=== PATIENT | female | born 1970 | race Caucasian/White ===

== ENCOUNTER 2016-08-31 10:34 | Emergency (ER) | payer BC ==
--- NOTE | 2016-08-31 11:05 | EDM.PDOC ---
ED HPI GENERAL MEDICAL PROBLEM - General Chief Complaint: General Stated Complaint: just doesnt feel right Time Seen by Provider: 08/31/16 10:58 Source of Information: Reports: Patient History Limitations: Reports: No limitations - History of Present Illness INITIAL COMMENTS - FREE TEXT/NARRATIVE: Patient reports "not feeling right" since yesterday. She has a history of relux and takes nexium or prilosec. She reports feeling weak and having gas. No bloating. States when she feels nauseated she just belches. She was very emotional during history collection with nursing staff, not so with myself. She states that eating makes her gas worse. Tylenol has been helpful. She also describes some right sided abdominal pain. She is a 1 PPD smoker, drinks 1 -3 nights weekly and states she will have 1-2 glasses of wine. When I arrived, nursing had already performed an EKG which appears normal, blood pressure is very elevated at 180's systolic over 110's diastolic. She has no PCP. No surgical history. Denies medical history except for the stomach issues. Onset: other Onset Date: 08/30/16 Location: Reports: abdomen Severity: moderate Improves with: Reports: Medication (states tylenol was helpful) Worsens with: Reports: Eating Associated Symptoms: Reports: no other symptoms - Related Data Allergies Allergy/AdvReac Type Severity Reaction Status Date / Time aspirin Allergy Hives Verified 08/31/16 11:01 Penicillins Allergy Hives Verified 08/31/16 11:01 Home Meds: Home Meds Esomeprazole Magnesium [Nexium] 20 mg DAILY 08/31/16 [History] ED ROS GENERAL - Review of Systems Review Of Systems: See Below Constitutional: Reports: weakness HEENT: Reports: No symptoms Respiratory: Reports: No Symptoms Cardiovascular: Reports: No symptoms Endocrine: Reports: no symptoms GI/Abdominal: Reports: Decreased appetite, Other (gas and bloated) : Reports: no symptoms Musculoskeletal: Reports: no symptoms Skin: Reports: no symptoms Neurological: Reports: Weakness Psychiatric: Reports: No symptoms Hematologic/Lymphatic: Reports: no symptoms Immunologic: Reports: no symptoms ED EXAM, GENERAL - Physical Exam Exam: See Below Exam Limited By: No limitations General Appearance: alert, WD/WN, anxious Ears: normal TMs Throat/Mouth: Normal inspection, Normal oropharynx Head: atraumatic, normocephalic Neck: normal inspection Respiratory/Chest: no respiratory distress, lungs clear, normal breath sounds Cardiovascular: normal peripheral pulses GI/Abdominal: normal bowel sounds, soft, non tender, no organomegaly, no distention, no abnormal bruit Back Exam: normal inspection, full range of motion Extremities: normal inspection, normal range of motion, non-tender, no pedal edema, normal capillary refill Neurological: alert, oriented, CN II-XII intact, normal cognition, normal gait, normal reflexes, no motor/sensory deficits Psychiatric: normal affect, normal mood Skin Exam: Warm, Dry, Intact Lymphatic: no adenopathy EKG INTERPRETATION EKG Date: 08/31/16 Time: 10:44 Rhythm: NSR Rate (beats/min): 86 [place]: normal P-wave: present QRS: normal ST-T: normal QT: normal Comparison: NA - no prior EKG EKG Interpretation Comments: normal ekg Departure - Departure Time of Disposition: 12:14 Disposition: Home, Self-Care 01 Condition: good Clinical Impression: Hypertension, Chronic GERD, Anxiety about health Instructions: Hypertension, [id number], DASH Eating Plan Forms: ED Department Discharge Additional Instructions: You should follow up with a primary doctor as you do need to be sure your blood pressure is controlled. We did discuss the damage to your organs that high blood pressure can cause including damage to your kidneys, liver, as well as your heart. You need to stop smoking. Your arteries and veins are becoming more rigid due to the smoking which can increase your blood pressure as well as cause poor blood flow to your lower legs. Please contact with any questions or concerns in the meantime. - Problem List & Annotations (1) Anxiety about health SNOMED Code(s): 141791549 Code(s): F41.8 - OTHER SPECIFIED ANXIETY DISORDERS Status: Acute Priority : Medium Current Visit: Yes (2) Chronic GERD SNOMED Code(s): 246613242, 699297107 Code(s): K21.9 - GASTRO-ESOPHAGEAL REFLUX DISEASE WITHOUT ESOPHAGITIS Status: Acute Priority: Medium Current Visit: Yes (3) Hypertension SNOMED Code(s): 69948677 Code(s): I10 - ESSENTIAL (PRIMARY) HYPERTENSION Status: Acute Priority: Medium Current Visit: Yes Qualifiers: Hypertension type: essential hypertension Qualified Code(s): I10 - Essential (primary) hypertension - Problem List Review Problem List Initiated/Reviewed/Updated: Yes - Assessment/Plan Assessment:: hypertensioin GERD Anxiety regarding health Plan: You should follow up with a primary doctor as you do need to be sure your blood pressure is controlled. We did discuss the damage to your organs that high blood pressure can cause including damage to your kidneys, liver, as well as your heart. You need to stop smoking. Your arteries and veins are becoming more rigid due to the smoking which can increase your blood pressure as well as cause poor blood flow to your lower legs. Please contact with any questions or concerns in the meantime.
[2016-08-31] MEDS ORDERED: Metoprolol Tartrate 25 MG Tab PO ONE (11:06)
[2016-08-31] MEDS ORDERED: GI Cocktail Oral Solution 30 ML PO ONE (11:07)
[2016-08-31] MEDS ORDERED: Nitroglycerin 0.4 MG/HR Transdermal Patch TRDERM ONE (11:07)
[2016-08-31 11:59] LABS: CHLORIDE,CL 102 mmol/L (98-107); SODIUM,NA 139 mmol/L (136-145)
[2016-08-31 12:25] VITALS: BP 151/97
== END 2016-08-31 12:23 | disposition home or self-care (01) ==
LOC: VM.ED 10:34
DX: K21.9 Gastro-esophageal reflux disease without esophagitis (principal); I10 Essential (primary) hypertension; F41.9 Anxiety disorder, unspecified; Z88.0 Allergy status to penicillin; Z88.6 Allergy status to analgesic agent
CPT/HCPCS: 36415; 80053; 82150; 82550; 82553; 83690; 84443; 84484; 85025; 85610; 93005; 99284; A9270

== ENCOUNTER 2016-09-07 14:48 | Emergency (ER) | payer BC ==
--- NOTE | 2016-09-07 14:59 | EDM.PDOC ---
ED HPI Skin/Rash - General Chief Complaint: Skin Complaint Stated Complaint: HAND INJURY Time Seen by Provider: 09/07/16 14:54 Source: Reports: Patient, RN, RN notes reviewed History Limitations: Reports: No limitations - History of Present Illness INITIAL COMMENTS - FREE TEXT/NARRATIVE: Patient presents to the ED at [facility] with a laceration to the lateral palm of the right hand. Patient states she was washing dishes and a drinking glass broke, causing the laceration. Symptom Onset Date: 09/07/16 Timing: Reports: still present Location, Skin: Reports: upper extremity, right Quality: Reports: Throbbing - Related Data Allergies Allergy/AdvReac Type Severity Reaction Status Date / Time aspirin Allergy Hives Verified 09/07/16 15:01 NSAIDS (Non-Steroidal Allergy Other Verified 09/07/16 15:02 Anti-Inflamma Penicillins Allergy Hives Verified 09/07/16 15:01 Home Meds: Ambulatory Orders Medication Instructions Recorded Confirmed Esomeprazole Magnesium [Nexium] 20 mg DAILY 08/31/16 08/31/16 Past Medical History - Past Health History Medical/Surgical History: Denies Medical/Surgical History Gastrointestinal History: Reports: Other (see below) Other Gastrointestinal History: gas and bloated discomfort Social & Family History - Tobacco Use Smoking Status *Q: Current Every Day Smoker Years of Tobacco use: 30 Packs/Tins Daily: 1 - Alcohol Use Days Per Week of Alcohol Use: 3 Number of Drinks Per Day: 4 Total Drinks Per Week: 12 - Recreational Drug Use Recreational Drug Use: No ED ROS GENERAL - Review of Systems Review Of Systems: See Below Constitutional: Denies: fever, chills, weakness Respiratory: Denies: Shortness of Breath, Cough Cardiovascular: Denies: Chest pain, Palpitations Skin: Reports: wound (cut palm of right hand) Neurological: Reports: No Symptoms ED EXAM, SKIN/RASH Exam: See Below Exam Limited By: No limitations General Appearance: alert, anxious Respiratory/Chest: no respiratory distress, lungs clear, normal breath sounds Cardiovascular: regular rate, rhythm Peripheral Pulses: 2+: radial (L), radial (R) Neurological: alert, oriented Skin: Warm, Dry, Normal color, No rash, Wound/incision (2cm vertical laceration lateral right palm; low grade venous ooze) Location, Skin: upper extremity, right Associated features: swelling ED SKIN PROCEDURES - Laceration/Wound Repair Right Lateral Hand Lac/wound length in cm: 2 Appearance: subcutaneous, linear, clean Distal NVT: neuro & vascular intact, no tendon injury Local anesthesia - Lidocaine (Xylocaine): 1% with epi Local anesthetic volume: 5cc Skin prep: chlorhexidine (hibiciens) Exploration/Debridement/Repair: wound explored, in a bloodless field, explored to base, no foreign material found, wound margins revised Closed with: sutures Suture size: 4-0 # of sutures: 6 Suture type: nylon, interrupted, simple Sterile dressing applied: provider Tetanus status addressed: Yes Complications: No Course - Vital Signs Last Recorded V/S: Last Vital Signs Temp 36.8 C 09/07/16 15:04 Pulse 99 09/07/16 15:04 Resp 16 09/07/16 15:04 BP 133/98 H 09/07/16 15:04 Pulse Ox 95 09/07/16 15:04 - Orders/Labs/Meds Meds: Medications Discontinued Medications Generic Name Dose Route Start Last Admin Trade Name Carlo PRN Reason Stop Dose Admin Lidocaine/Epinephrine 20 ml 09/07/16 15:00 09/07/16 15:11 Xylocaine 1% With Epinephrine 1:100,000 INFILT 09/07/16 15:01 20 ml ONETIME ONE Administration Departure - Departure Time of Disposition: 15:31 Disposition: Home, Self-Care 01 Condition: good Clinical Impression: Hand laceration Qualifiers: Encounter type: initial encounter Foreign body presence: without foreign body Laterality: right Qualified Code(s): S61.411A - Laceration without foreign body of right hand, initial encounter Instructions: Laceration Care, Adult, Sutured Wound Care Referrals: Teri Uribe PA-C [Primary Care Provider] - Forms: ED Department Discharge Additional Instructions: 1. Stay well hydrated and rest 2. Suture to stay in for 10 days 3. Keep area clean and dry 4. See your Primary in 10 days for a wound recheck and possible suture removal - Problem List Review Problem List Initiated/Reviewed/Updated: Yes
[2016-09-07] MEDS ORDERED: Lidocaine 1% with EPINEPHrine 1:100,000 20 ML MDV INFILT ONE (15:00)
[2016-09-07 15:05] VITALS: BP 133/98
== END 2016-09-07 15:40 | disposition home or self-care (01) ==
LOC: VM.ED 14:48
DX: S61.411A Laceration without foreign body of right hand, initial encounter (principal); F17.210 Nicotine dependence, cigarettes, uncomplicated; Z88.0 Allergy status to penicillin; Z88.8 Allergy status to other drugs, medicaments and biological substances; Z79.899 Other long term (current) drug therapy; W25.XXXA Contact with sharp glass, initial encounter; Y93.G1 Activity, food preparation and clean up
CPT/HCPCS: 12001; 96372; 99282

== ENCOUNTER 2020-01-28 21:07 | Emergency (ER) | payer BC, OTHER ==
[2020-01-28] MEDS: Diphtheria,Pertussis(Acell),Tetanus Vaccine 0.5 ML Syringe IM ONE (21:37)
--- NOTE | 2020-01-28 21:40 | EDM.PDOC ---
ED HPI GENERAL MEDICAL PROBLEM - General Chief Complaint: Skin Complaint Stated Complaint: LACERATION Time Seen by Provider: 01/28/20 21:10 Source of Information: Reports: Patient History Limitations: Reports: No Limitations - History of Present Illness INITIAL COMMENTS - FREE TEXT/NARRATIVE: Yasmin is a 49 year old female who presents with a laceration to her head. Was letting her dog out and it got spooked by a cat and caused her to trip. Hit her head on the chair. No loss of consciousness. Does have pain with the wound but no double or blurred vision. Mild headache. No nausea. Tetanus outdated. Onset: Today, Sudden Duration: Minutes: Location: Reports: Head Quality: Reports: Ache Severity: Moderate Associated Symptoms: Reports: No Other Symptoms - Related Data Allergies Allergy/AdvReac Type Severity Reaction Status Date / Time aspirin Allergy Hives Verified 09/07/16 15:01 NSAIDS (Non-Steroidal Allergy Other Verified 09/07/16 15:02 Anti-Inflamma Penicillins Allergy Hives Verified 09/07/16 15:01 Home Meds: Home Meds Pantoprazole Sodium [Protonix] 40 mg PO ACBREAKFAST 09/07/16 [History] Sucralfate [Carafate] 1 gm PO QID 09/07/16 [History] Triamcinolone Acetonide [Triamcinolone Acetonide 0.1% Crm] 1 applic TOP TID PRN 09/07/16 [History] hydroCHLOROthiazide [Hydrochlorothiazide] 12.5 mg PO DAILY 09/07/16 [History] valACYclovir [Valtrex] 1,000 mg PO ASDIRECTED PRN 09/07/16 [History] Past Medical History - Past Health History Medical/Surgical History: Denies Medical/Surgical History Cardiovascular History: Reports: Hypertension Gastrointestinal History: Reports: Other (See Below) Other Gastrointestinal History: gas and bloated discomfort Psychiatric History: Reports: Anxiety - Past Surgical History HEENT Surgical History: Reports: Other (See Below) Social & Family History - Tobacco Use Smoking Status *Q: Current Every Day Smoker - Caffeine Use Caffeine Use: Reports: Coffee, Tea ED ROS GENERAL - Review of Systems Review Of Systems: See Below Constitutional: Denies: Weakness, Fatigue HEENT: Denies: Ear Pain, Nosebleed, Vertigo, Vision Change Respiratory: Reports: No Symptoms Cardiovascular: Reports: No Symptoms GI/Abdominal: Reports: No Symptoms Skin: Reports: Wound Neurological: Reports: Headache ED EXAM, SKIN/RASH Exam: See Below Exam Limited By: No Limitations General Appearance: Alert, WD/WN, No Apparent Distress Eye Exam: Bilateral Eye: EOMI, PERRL Ears: Normal External Exam, Normal TMs Nose: Normal Inspection, Normal Mucosa, No Blood Throat/Mouth: Normal Inspection, Normal Oropharynx Head: Normocephalic Neck: Normal Inspection, Supple, Non-Tender Neurological: Alert, Oriented, CN II-XII Intact, Normal Cognition, Normal Gait, Normal Reflexes, No Motor/Sensory Deficits Skin: Wound/Incision Location, Skin: Face ED SKIN PROCEDURES - Laceration/Wound Repair Right Forehead Appearance: Subcutaneous Local Anesthesia - Lidocaine (Xylocaine): 1% Plain Local Anesthetic Volume: 3cc Skin Prep: Chlorhexidine (Hibiciens) Exploration/Debridement/Repair: Wound Explored, In a Bloodless Field, Explored to Base Closed with: Sutures Lac/Wound length In cm: 3.5 Suture Size: 6-0 # of Sutures: 8 Suture Type: Nylon, Interrupted, Simple Sterile Dressing Applied: Provider Tetanus Status Addressed: Yes Complications: No Course - Orders/Labs/Meds Orders: Active Orders 24 hr Category Date Time Status Vaccines to be Administered [RC] PER UNIT ROUTINE Care 01/28/20 21:14 Active Meds: Medications Discontinued Medications Generic Name Dose Route Start Last Admin Trade Name Carlo PRN Reason Stop Dose Admin Diphtheria/Tetanus/Acell Pertussis 0.5 ml 01/28/20 21:14 Adacel IM 01/28/20 21:15 .ONCE ONE Lidocaine HCl 5 ml 01/28/20 21:13 Xylocaine-Mpf 1% INJECT 01/28/20 21:14 ONETIME ONE Departure - Departure Time of Disposition: 21:38 Disposition: Home, Self-Care 01 Condition: Good Clinical Impression: Laceration - Discharge Information *PRESCRIPTION DRUG MONITORING PROGRAM REVIEWED*: No *COPY OF PRESCRIPTION DRUG MONITORING REPORT IN PATIENT LOUISE: No Instructions: Laceration Care, Adult Forms: ED Department Discharge Additional Instructions: 1. Keep wound clean and dry 2. Cover with triple antibiotic ointment for 3 days then may leave open to air 3. Do not shower for 24 hours 4. Sutures out in 5 days 5. Contact PCP if any concerns of infection, see wound care instructions - My Orders Last 24 Hours: My Active Orders 01/28/20 21:14 Vaccines to be Administered [RC] PER UNIT ROUTINE - Assessment/Plan Last 24 Hours: My Active Orders 01/28/20 21:14 Vaccines to be Administered [RC] PER UNIT ROUTINE
[2020-01-28 22:39] VITALS: BP 172/76; PULSE 96
== END 2020-01-28 22:00 | disposition home or self-care (01) ==
LOC: VM.ED 21:07
DX: S01.81XA Laceration without foreign body of other part of head, initial encounter (principal); I10 Essential (primary) hypertension; F17.200 Nicotine dependence, unspecified, uncomplicated; Z23 Encounter for immunization; Z88.8 Allergy status to other drugs, medicaments and biological substances; Z88.6 Allergy status to analgesic agent; Z88.0 Allergy status to penicillin; Z79.899 Other long term (current) drug therapy; W01.198A Fall on same level from slipping, tripping and stumbling with subsequent striking against other object, initial encounter
CPT/HCPCS: 12013; 90471; 90715; 99283; J2001